=== PATIENT | female | born 1965 | race Caucasian/White ===

== ENCOUNTER 2019-08-18 11:20 | Emergency (ER) | payer BC, OTHER ==
[~2019-08-18] VITALS: Ht 157.5 cm; Wt 73.6 kg
[~2019-08-18 11:20] MED LIST: HYDR-4011 PO; NAPR-985 PO
[2019-08-18 11:26] VITALS: Ht 157.5 cm; Wt 73.6 kg
[2019-08-18] MEDS ORDERED: morphine 4 MG/ML VIAL IM STA (11:56)
[2019-08-18] MEDS ORDERED: KETOROLAC 30 MG INJ IM STA (11:59)
[2019-08-18] MEDS ORDERED: morphine 2 MG INJ IM STA (11:59)
[2019-08-18 13:02] VITALS: BP 125/80; PULSE 87; RESP 16
== END 2019-08-18 13:16 | disposition home or self-care (01) ==
LOC: FTE 11:20
DX: M79.641 Pain in right hand (principal); M79.642 Pain in left hand; R50.9 Fever, unspecified; R19.7 Diarrhea, unspecified
CPT/HCPCS: 96372; J1885; J2270; Z7502